=== PATIENT | male | born 1995 | race African-American/Black ===

== ENCOUNTER 2018-02-16 12:25 | Inpatient (IN) ==
[2018-02-16] MEDS ORDERED: Bisacodyl 10 MG Supp RECTAL PRN (18:17)
[2018-02-16] MEDS ORDERED: Aluminum/Magnesium/Simethacone Susp 30 ML UDC PO PRN (18:17)
[2018-02-17] MEDS: Senna/Docusate Sodium 8.6/50 MG Tablet PO SCH ×3 (00:47→23:34)
[2018-02-17 09:05] LABS: Anion Gap 8 meq/L (5-15); Blood Urea Nitrogen 8 mg/dL (7-18); Calcium 9.3 mg/dL (8.5-10.1); Carbon Dioxide 29.5 meq/L (21.0-32.0); Chloride 104 meq/L (98-107); Cholesterol 133 mg/dL (120-200); Glomerular Filtration Rate Greater Than 89 mL/min (>89); Glucose,Random 99 mg/dL (74-106); Potassium 3.7 meq/L (3.5-5.1); Sodium 141 meq/L (136-145); Triglycerides 95 mg/dL (42-150)
[2018-02-17 09:08] LABS: Chol/HDL Ratio 2.44 Ratio; HDL Cholesterol 54.3 mg/dL (40.0-60.0); LDL Cholesterol,Calculated 60 mg/dL (0-99)
--- NOTE | 2018-02-17 11:09 | P.HPPSY ---
Provisional Diagnosis Admission Date: February 16, 2018 14:57 [place] I.: 1. Adjustment disorder with mixed disturbance of emotions and conduct Rule out bipolar disorder, presently depressed or perhaps mixed Rule-out primary psychotic illness 2. History of bipolar disorder 3. Rule out higher functioning autism spectrum disorder [place] II.: Deferred Competence Certification of Person's Competence To Provide Express and Informed Consent I have personally examined aDrrel Gabriel, a person being served at [facility] on, February 17, 2018 1109. Express and informed consent means consent voluntarily given in writing, by a competent person, after sufficient explanation and disclosure of the subject matter involved to enable the person to make a knowing and willful decision without any element of force, fraud, deceit, duress, or other form of constraint or coercion. This person is 18 years of age or older, is not now known to be incompetent to consent to treatment with a guardian advocate, and does not have a health care surrogate or proxy currently making medical treatment decisions. I have found this person to be one of the following: [] Competent to provide express and informed consent, as defined above, for voluntary admission to this facility and is competent to provide express and informed consent for treatment. He/she has the consistent capacity to make well reasoned, willful, and knowing decisions concerning his or her medical or mental health treatment. The person fully and consistently understands the purpose of the admission for examination/placement and is fully capable of personally exercising all rights assured under [place] [] Incompetent to provide express and informed consent to voluntary admission, and this is incompetent to provide express and informed consent to treatment. The person must be transferred to involuntary status and a petition for a guardian advocate filed with the Circuit Court. [X] Refusing to provide express and informed consent to voluntary admission but is competent to provide express and informed consent for treatment. The person must be discharged or transferred to involuntary status. Form shall be completed within 24 hours of a person's arrival at the receiving facility and filed in the clinical record of each person: 1. Admitted on a voluntary basis 2. Permitted to provide express and informed consent to his/her own treatment 3. Allowed to transfer from involuntary to voluntary status 4. Prior to permitting a person to consent to his or her own treatment after having been previously found incompetent to consent to treatment. History of Present Illness Capacity: Has capacity (To consent for medication/treatment) Chief Complaint: [place] overdose History of Present Illness: Mr. Gabriel is a 22-year-old male with a reported history of bipolar disorder who presents in transfer from [facility] under a Nguyen act. Documentation from outside hospital reviewed. The patient presented there after a suicide attempt by lithium overdose. He was medically hospitalized for management of his overdose and transferred to [place] once medically cleared. Reviewing our electronic medical record, I see no previous psychiatric contact within our system. Of note, the patient's name is given as [facility] in outside hospital documentation. I have looked up this name as well in our EMR but have not found any matching records. Patient seen and examined with nurse. Chart reviewed. Case discussed with nursing staff. On my examination today, the patient presents as somewhat aloof and socially awkward. He says that he has a history of depression and chronic suicidality "but it is not curable, it just pops up." He says that his suicidal ideations "come and go" and medicines do not help. He is presently maintained on lithium 900 mg daily and BuSpar 20 mg twice daily by his report. He says that he made his presenting overdose on approximately 10 tablets of lithium 450 mg after an argument with his girlfriend. He says that he woke up and his girlfriend was not there "and I ended up doing it" referring to his overdose. He says that this overdose "was a bad idea." He denies suicidal or homicidal ideation at this time but also says "I just want to be free. I will do anything to be free." This suggests to me that he may be minimizing psychiatric symptomatology in service of obtaining a wren discharge. The patient admits to feeling somewhat depressed. No hypomanic or manic symptoms noted. He denies any audiovisual hallucinations. I can elicit no paranoia, no ideas of reference, no feelings of thought manipulation or other delusional material. The remainder of the psychiatric ROS is negative. No acute physical complaints. Past psychiatric history: The patient reports a history of bipolar disorder. Patient does report a history of possible hypomanic or perhaps manic episode 3 years ago when he was a student at [employer]. He follows with Dr. House at [facility] in [place] for outpatient psychiatric care. He reports that he was admitted approximately 1 year ago for an overdose. He says that he has a total of now 3 psychiatric admissions. He reports 1 previous suicide attempt by overdose. He does report a history of nonsuicidal cutting. Patient reports previous medication trials of Lamictal and Wellbutrin. Family history: The patient denies a family history of serious mental illness or suicide. Chemical dependency history: The patient denies any abuse of drugs or alcohol. Social history: The patient reports that he lives by himself in college housing. He is a sophomore with undecided major at [employer]. He has a girlfriend. He has no children but has a pet dog. He denies any history. Denies any access to guns or firearms. He does endorse some spiritual beliefs. He denies any history of trauma. Past medical history: Patient denies any history of medical problems. Medications: Patient takes psychotropics as listed above. He denies any other medications. Allergies: The patient denies any allergies. I did endeavor to reach out to Dr. House and have left a call back number requesting a call back. - Inpatient Certification I certify that the inpatient services were ordered in accordance with Medicare regulations governing the order. This includes certification that hospital inpatient services are reasonable and necessary and in the case of services not specified as inpatient-only under 42 CFR 419.22(n), that they are appropriately provided as inpatient services in accordance to with the 2-midnight benchmark under 43 CFR 412.3(e) I certify that inpatient psychiatric hospital services are medically necessary. Evaluation and treatment and/or diagnostic testing are expected to improve the patient's condition. The patient needs on a daily basis, active treatment furnished directly by or requiring the supervision of inpatient psychiatric facility personnel. Estimated Total Length of Stay (Days): 7 (5-7) Plans for Post Hospital Care: Not yet determined Review of Systems All other systems reviewed negative except as stated in [facility] - History History Provided By: Patient - Medical History Medical History: Medical History (Last Updated 02/16/18 @ 18:10 by Skye Cho RN) Bipolar disorder Suicidal ideation - Tobacco History Second Hand Smoke Exposure: No Tobacco Use In Past 30 Days: Yes Smoking Status: Current some day smoker Tobacco Type: Cigarettes - Alcohol History How Often Do You Have a Drink Containing Alcohol: 2 to 4 times a month - Substance Use History Substance History: No History of Abuse - Substance Use Type Marijuana Status: Active Route Used: Inhalation Frequency: "a couple of times a week" Last Used: 2 nights ago Reason for Use: Feels Good Comment: none - Travel History Recent Travel in the USA Within the Last 8 Weeks: No Recent Travel Out of the Country Within the Last 8 Weeks: No - Immunization History Tetanus Immunization: Unsure Hx Influenza Vaccine This Season: Yes Quality Measures - Psychiatric History Psychological trauma history: See above - Patient Strengths Patient's strengths (minimum of 2): In a monitored setting. Verbally fluent. Medications and Allergies Active Medications: Active Medications Al Hydrox/Mg Hydrox/Simethicone (Mag-Al Plus Susp Liq) 30 ml PO Q6H PRN PRN Reason: DYSPEPSIA Al Hydroxide/Mg Hydroxide (Milk Of Magnesia Liq) 30 ml PO Q12H PRN PRN Reason: Mild Constipation Bisacodyl (Dulcolax Supp) 10 mg RECTAL DAILY PRN PRN Reason: SEVERE CONSITIPATION Lactulose (Lactulose Liq) 30 ml PO DAILY PRN PRN Reason: SEVERE CONSITIPATION Senna/Docusate Sodium (Lorraine-Colace) 1 tab PO BID АННА Last Admin: 02/17/18 00:47 Dose: Not Given Sennosides (Senokot) 17.2 mg PO Q12H PRN PRN Reason: Moderate Constipation Allergies Allergy/AdvReac Type Severity Reaction Status Date / Time No Known Allergies Allergy Unverified 02/16/18 15:49 Home Medications Medication Instructions Recorded Confirmed Type buspirone See Label Instructions .ROUTE 02/16/18 History .COMPLEX lithium carbonate 2 tabcap PO HS 02/16/18 02/16/18 History Results - Labs CBC & Chem 7: 02/17/18 08:22 Labs: Laboratory Results - last 24 hr 02/17/18 08:22 Sodium 141 Potassium 3.7 Chloride 104 Carbon Dioxide 29.5 Anion Gap 8 BUN 8 Creatinine 0.94 Estimated GFR Greater than 89 Random Glucose 99 Calcium 9.3 Triglycerides 95 Cholesterol 133 LDL Cholesterol, Calc 60 HDL Cholesterol 54.3 Cholesterol/HDL Ratio 2.44 Laboratories from outside hospital reviewed. Presenting lithium level 2.7, downtrending. CBC reveals normal white blood cells, hemoglobin and platelets. CMP reveals hyperbilirubinemia at 3.7. Urine toxicology negative. EKG read as sinus rhythm but waveform not available for my review. Exam Vital signs: Vital Signs 02/16/18 17:46 02/17/18 06:41 Temperature 98.2 F 97.9 F Pulse Rate 53 L 63 Blood Pressure 108/54 L 122/55 L Pulse Oximetry 99 Intake & Output 02/16/18 02/17/18 02/17/18 18:59 06:59 18:59 Weight 63.2 kg Other: Weight On Admission 63.2 kg Narrative: Physical examination completed by hospitalist at outside hospital. On my examination today, the patient appears to be in no acute physical distress. No motor abnormalities noted. Labs and vital signs reviewed. Mental Status Examination Appearance: Appropriate Consciousness: Alert Orientation: x4 Motor Activity: Normal gait Speech: Unremarkable Language: Other (Somewhat stilted) Fund of Knowledge: Adequate Attention and Concentration: Adequate Memory: Unremarkable (Grossly intact on clinical exam) Mood: Other (Dysphoric) Affect: Other (Restricted. Socially awkward.) Thought Process & Associations: Circumstantial Thought Content: Appropriate Hallucination Type: None Delusion Type: None Suicidal Ideation: No (Suspect unreliable to contract for safety) Suicidal Plan: No Suicidal Intention: No Homicidal Ideation: No Homicidal Plan: No Homicidal Intention: No Insight: Fair Judgment: Impulsive Assessment and Plan - Assessment (1) Adjustment disorder with mixed disturbance of emotions and conduct Code(s): F43.25 - Adjustment disorder with mixed disturbance of emotions and conduct Status: Acute (2) History of bipolar disorder Code(s): Z86.59 - Personal history of other mental and behavioral disorders Status: Acute - Plan Plan: 22-year-old male with psychiatric history as detailed above who presents in transfer from outside hospital following a lithium overdose. Patient reports lithium overdose was made in the setting of conflict with girlfriend and also stress over school. He denies any suicidal ideation ongoing but also says that he would "do anything to be free" and so it is feared that he is minimizing psychiatric symptomatology. Differential diagnosis includes adjustment reaction to the stressors noted above, but we also must rule out mood episode in setting of bipolar disorder or primary psychotic illness. The patient is also somewhat interpersonally odd and socially awkward, and I do wonder about a higher functioning autism spectrum disorder. I will plan to admit the patient to the inpatient psychiatric unit for safety, observation and stabilization. Admit inpatient. Patient is declining to consent for voluntary admission. Involuntary status. I have completed first opinion. Consult for second opinion. Patient retains capacity to consent for psychotropic medications. Given his history of bipolar disorder and current depressed state, I have discussed with him pharmacotherapeutic options for management of his bipolar disorder. Given the therapeutic index of lithium and high lethality in overdose , I have suggested that we perhaps transitioning him to a different agent for mood stabilization. After a discussion of his options in this regard, we settle on a trial of lurasidone. I will initiate lurasidone 40 mg with dinner with plans to titrate to effect and check an EKG for QTc. I will continue the patient's BuSpar 20 mg twice daily. Atarax as needed for anxiety. Benadryl as needed for sleep. I will check a follow-up lithium level to ensure that this has normalized and is now undetectable. I will also check follow-up fractionated bilirubin to assess his hyperbilirubinemia at outside hospital. Vitals every shift. Counselor to see. Collateral information. Disposition planning. Estimated length of stay: 5-7 days. Justification for Continued Inpatient Stay: See above Discharge Planning: Pending psychiatric stabilization Request Healthcare Surrogate/Guardian Advocate?: No
[2018-02-17 13:45] LABS: Thyroid Stimulating Hormone 1.96 uIU/mL (0.358-3.740)
--- NOTE | 2018-02-17 14:32 | P.CONPSY ---
Provisional Diagnosis Admission Date: February 16, 2018 14:57 [place] I.: 1. Adjustment disorder with mixed disturbance of emotions and conduct Rule out bipolar disorder, presently depressed or perhaps mixed 2. History of bipolar disorder 3. Rule out higher functioning pervasive developmental disorder such as autism spectrum disorder [place] II.: Deferred History of Present Illness Service: Psychiaitry Primary Care Provider: UNKNOWN History of Present Illness: Mr. Gabriel is a 22-year-old male with a reported history of bipolar disorder who presents in transfer from [facility] under a Nguyen act. Documentation from outside hospital reviewed. The patient presented there after a suicide attempt by lithium overdose. He was medically hospitalized for management of his overdose and transferred to [place] once medically cleared. Reviewing our electronic medical record, I see no previous psychiatric contact within our system. Of note, the patient's name is given as [place] in outside hospital documentation. I have looked up this name as well in our EMR but have not found any matching records.Patient seen and examined with nurse. Chart reviewed. Case discussed with nursing staff. On my examination today, the patient presents as somewhat aloof and socially awkward. He says that he has a history of depression and chronic suicidality "but it is not curable, it just pops up." He says that his suicidal ideations "come and go" and medicines do not help. He is presently maintained on lithium 900 mg daily and BuSpar 20 mg twice daily by his report. He says that he made his presenting overdose on approximately 10 tablets of lithium 450 mg after an argument with his girlfriend. He says that he woke up and his girlfriend was not there "and I ended up doing it" referring to his overdose. He says that this overdose "was a bad idea." He denies suicidal or homicidal ideation at this time but also says "I just want to be free. I will do anything to be free." This suggests to me that he may be minimizing psychiatric symptomatology in service of obtaining a wren discharge. The patient admits to feeling somewhat depressed. No hypomanic or manic symptoms noted. He denies any audiovisual hallucinations. I can elicit no paranoia, no ideas of reference, no feelings of thought manipulation or other delusional material. The remainder of the psychiatric ROS is negative. No acute physical complaints. The patient is a 22-year-old AA man, domiciled in college in [place], single, with a reported history of bipolar disorder, multiple hospitalizations, who presents in transfer from [facility] under a Nguyen act. Documentation from outside hospital reviewed. The patient presented there after a suicide attempt by lithium overdose. He was medically hospitalized for management of his overdose and transferred to [place] once medically cleared. Consulted to me for second opinion. He initially was cooperative and brian, stating his OF was a mistake and he regrets his actions. However as interview progress patient becomes quite paranoid and agitated asking why I am asking question about him and who am I. He said he feels observed and not comfortable in the room and he ran out. [facility] - History History Provided By: Patient - Medical History Medical History: Medical History (Last Updated 02/16/18 @ 18:10 by Skye Cho RN) Bipolar disorder Suicidal ideation - Tobacco History Second Hand Smoke Exposure: No Tobacco Use In Past 30 Days: Yes Smoking Status: Current some day smoker Tobacco Type: Cigarettes - Alcohol History How Often Do You Have a Drink Containing Alcohol: 2 to 4 times a month - Substance Use History Substance History: No History of Abuse - Substance Use Type Marijuana Status: Active Route Used: Inhalation Frequency: "a couple of times a week" Last Used: 2 nights ago Reason for Use: Feels Good Comment: none - Travel History Recent Travel in the USA Within the Last 8 Weeks: No Recent Travel Out of the Country Within the Last 8 Weeks: No - Immunization History Tetanus Immunization: Unsure Hx Influenza Vaccine This Season: Yes Medications and Allergies Active Medications: Active Medications Al Hydrox/Mg Hydrox/Simethicone (Mag-Al Plus Susp Liq) 30 ml PO Q6H PRN PRN Reason: DYSPEPSIA Al Hydroxide/Mg Hydroxide (Milk Of Magnesia Liq) 30 ml PO Q12H PRN PRN Reason: Mild Constipation Bisacodyl (Dulcolax Supp) 10 mg RECTAL DAILY PRN PRN Reason: SEVERE CONSITIPATION Buspirone HCl (Buspar) 20 mg PO BID АННА Diphenhydramine HCl (Benadryl) 50 mg PO HS PRN PRN Reason: INSOMNIA Hydroxyzine HCl (Atarax) 50 mg PO Q6H PRN PRN Reason: ANXIETY Lactulose (Lactulose Liq) 30 ml PO DAILY PRN PRN Reason: SEVERE CONSITIPATION Lurasidone HCl (Latuda) 40 mg PO DAILY@17 АННА Senna/Docusate Sodium (Lorraine-Colace) 1 tab PO BID АННА Last Admin: 02/17/18 09:00 Dose: Not Given Sennosides (Senokot) 17.2 mg PO Q12H PRN PRN Reason: Moderate Constipation Allergies Allergy/AdvReac Type Severity Reaction Status Date / Time No Known Allergies Allergy Unverified 02/16/18 15:49 Home Medications Medication Instructions Recorded Confirmed Type buspirone See Label Instructions .ROUTE 02/16/18 History .COMPLEX lithium carbonate 2 tabcap PO HS 02/16/18 02/16/18 History Exam Vital signs: Vital Signs 02/16/18 17:46 02/17/18 06:41 Temperature 98.2 F 97.9 F Pulse Rate 53 L 63 Blood Pressure 108/54 L 122/55 L Pulse Oximetry 99 Intake & Output 02/16/18 02/17/18 02/17/18 18:59 06:59 18:59 Weight 63.2 kg Other: Weight On Admission 63.2 kg Mental Status Examination Appearance: Appropriate Consciousness: Alert Orientation: x4 Motor Activity: Normal gait Speech: Unremarkable Language: Other (Somewhat stilted) Fund of Knowledge: Adequate Attention and Concentration: Adequate Memory: Unremarkable (Grossly intact on clinical exam) Mood: Other (Dysphoric) Affect: Other (Restricted. Socially awkward.) Thought Process & Associations: Circumstantial Thought Content: Appropriate Hallucination Type: None Delusion Type: Paranoid Suicidal Ideation: No (Suspect unreliable to contract for safety) Suicidal Plan: No Suicidal Intention: No Homicidal Ideation: No Homicidal Plan: No Homicidal Intention: No Insight: Fair Judgment: Impulsive Assessment and Plan - Assessment (1) Adjustment disorder with mixed disturbance of emotions and conduct Code(s): F43.25 - Adjustment disorder with mixed disturbance of emotions and conduct Status: Acute (2) History of bipolar disorder Code(s): Z86.59 - Personal history of other mental and behavioral disorders Status: Acute - Plan Plan: I have seen and examined this patient, reviewed the documentation, I agree and concur with Dr. Oviedo assessment and plan. Justification for Continued Inpatient Stay: Continue admission Request Healthcare Surrogate/Guardian Advocate?: No
[2018-02-17 16:24] LABS: Hemoglobin A1c 4.5 % (4.3-6.0)
[2018-02-18] MEDS: Senna/Docusate Sodium 8.6/50 MG Tablet PO SCH ×2 (11:45→22:48)
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
[2018-02-19] MEDS: Senna/Docusate Sodium 8.6/50 MG Tablet PO SCH ×2 (11:18→22:04)
--- NOTE | 2018-02-19 12:11 | ECG ---
Date Performed: 02/17/2018 Time Performed: 14:05:30 PTAGE: 22 years EKG: SINUS BRADYCARDIA BORDERLINE ECG NO PREVIOUS TRACING DOCTOR: Erick Jaime Interpretating Date/Time 02/19/2018 12:09:52
--- NOTE | 2018-02-19 15:04 | P.PNPSY ---
Subjective Chief Complaint: [place] overdose Remarks: Reviewed electronic medical records and discussed case with staff. Follow-up was conducted in the hallway with PEYTON Amaya present. Patient voices no concerns. Denies racing thoughts, impulsivity or insomnia. States that he is feeling better. Sleeping and eating well. Very quiet. Spends time in the common area with others, stays to himself. Review of Systems All other systems reviewed negative except as stated in HPI Mental Status Examination Appearance: Appropriate Consciousness: Alert Orientation: x4 Motor Activity: Normal gait Speech: Unremarkable Language: Other (Somewhat stilted) Fund of Knowledge: Adequate Attention and Concentration: Adequate Memory: Unremarkable (Grossly intact on clinical exam) Mood: Other (Dysphoric) Affect: Other (Restricted. Socially awkward.) Thought Process & Associations: Circumstantial Thought Content: Appropriate Hallucination Type: None Delusion Type: None Suicidal Ideation: No (Suspect unreliable to contract for safety) Suicidal Plan: No Suicidal Intention: No Homicidal Ideation: No Homicidal Plan: No Homicidal Intention: No Insight: Fair Judgment: Impulsive Assessment and Plan - Assessment (1) Adjustment disorder with mixed disturbance of emotions and conduct Code(s): F43.25 - Adjustment disorder with mixed disturbance of emotions and conduct Status: Acute (2) History of bipolar disorder Code(s): Z86.59 - Personal history of other mental and behavioral disorders Status: Acute (3) [place] overdose Code(s): T56.891A - Toxic effect of other metals, accidental (unintentional), initial encounter Status: Acute - Plan Plan: Patient will be reevaluated Tuesday by the attending psychiatrist. Continue with current treatment plan. Justification for Continued Inpatient Stay: Moving patient to a less restrictive environment may result in his decompensation. Request Healthcare Surrogate/Guardian Advocate?: No
[2018-02-20] MEDS: Senna/Docusate Sodium 8.6/50 MG Tablet PO SCH ×2 (08:24→20:59)
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
[2018-02-21] MEDS: Senna/Docusate Sodium 8.6/50 MG Tablet PO SCH ×2 (08:04→20:27)
--- NOTE | 2018-02-21 10:44 | P.PNPSY ---
Subjective Chief Complaint: [place] overdose Remarks: Patient seen and examined with nurse and counselor. Chart reviewed. Case discussed with nursing. Patient noted to be argumentative, demanding. He reportedly displays inappropriate affect per nursing and also exhibits thought blocking. He was erroneously placed with 1:1 overnight secondary to a misreading of my order, and this 1:1 has been discontinued as there has been no overt aggressive behavior to support its continuation. Case discussed in treatment team. On my examination today, the patient presents as irritable. His is paranoid. He does claim to feel more relaxed with titration of Latuda, but his affect does not support this. He remains argumentative and passive aggressive. He denies suicidal or homicidal ideation, although it is not at all clear that he is reliable to contract for safety. He is somewhat intrusive. He seems to have a delusional misperception regarding his interaction with Dr. Ambriz. He refused to provide counselor with source of collateral information yesterday and initially refuses again today, saying he prefers to abide his time until [place] on . He does, ultimately, allow counselor to reach out to patient's stepmother Jaja Montez at [phone]. He reports that he finds this provider "annoying." I do try to explore and if possible repair the therapeutic relationship, but the patient just repeats that he finds me "annoying." I did offer to ask another physician to assume care of his case, but he declines and wishes to continue with me attending his case. He denies side effects from medications. No physical complaints. Vital Signs Temp Pulse Resp BP Pulse Ox 02/21/18 05:53 46 L 16 121/58 L 100 02/20/18 15:32 98.0 F 66 18 124/58 L 100 Intake and Output 02/20/18 02/21/18 02/21/18 22:59 06:59 14:59 Intake Total 360 / 360 Balance 360 / 360 Intake: Oral 360 / 360 Labs reviewed. Review of Systems All other systems reviewed negative except as stated in HPI (Limitation: Psychosis) Mental Status Examination Appearance: Appropriate Consciousness: Alert, Vigilant Orientation: x4 Motor Activity: Normal gait Speech: Unremarkable Language: Other (Remains a little stilted and odd) Fund of Knowledge: Adequate Attention and Concentration: Adequate Memory: Unremarkable (Grossly intact on clinical exam) Mood: Oppositional, Irritable (Remains quite irritable) Affect: Irritable Thought Process & Associations: Circumstantial Thought Content: Delusional Hallucination Type: None Delusion Type: Paranoid (Ongoing paranoia) Suicidal Ideation: No Suicidal Plan: No Suicidal Intention: No Homicidal Ideation: No Homicidal Plan: No Homicidal Intention: No Insight: Poor Judgment: Poor Assessment and Plan - Assessment (1) Unspecified psychosis Code(s): F29 - Unspecified psychosis not due to a substance or known physiological condition Status: Acute - Plan Plan: Continue to titrate Latuda to target paranoia. Latuda 80 mg with dinner this evening. Obtain collateral information, which hopefully will help clarify the diagnosis. Differential at this point includes primary psychotic illness, PDD, personality disorder (such as paranoid personality). Continue to monitor on the inpatient unit. Continue other medications and care as ordered. Justification for Continued Inpatient Stay: Medication changes. Impairment in reality construction. High risk for decompensation in less restrictive environment. Discharge Planning: Pending psychiatric stabilization. Request Healthcare Surrogate/Guardian Advocate?: No (1) Unspecified psychosis Qualifiers: Psychosis type: unspecified psychosis type Qualified Code(s): F29 - Unspecified psychosis not due to a substance or known physiological condition
--- NOTE | 2018-02-21 11:18 | P.TTN ---
- Patient Problems Problems: 1. Discharge planning 2. Medication compliance 3. Knowledge deficit 4. Lack of coping skills - Progress Toward Goals Provider Present: Dr. Yue Oviedo (Patient is tense and making threats of harming others on the unit yesterday, Dr. Oviedo has close opts on patient to ensure safety on the unit.) Psychiatric Counselors Present: Jack Tijerina Jr., [facility] (Patient stated he did not trust counselor to obtain collateral information and would rather "take my chances in court on " per patient.) Group Spec/RT/OT/GARCIA Present: RADHA Ballesteros (Patient does not attend groups at this time) - Documentation Teaching Recipient: Patient
[2018-02-21] MEDS: Lurasidone 80 MG Tablet PO SCH ×2 (17:04→17:56)
--- NOTE | 2018-02-22 10:31 | P.PNPSY ---
Subjective Chief Complaint: [place] overdose Remarks: Patient seen and examined with nurse. Chart reviewed. Case discussed with nursing staff. No behavioral issues noted overnight. Collateral information obtained by counselor from patient's parents reviewed. On my examination today , the patient apologizes for his behavior yesterday and in previous days. He denies any suicidal or homicidal ideation calm and at ease today. He does request transfer to a lower acuity unit. He complains of some pressure and anxiety feeling, most prominent at night after his Latuda dose, and it seems possible that this feeling is related to the medication. We discuss alternative antipsychotic options and settle on a trial of Zyprexa at bedtime. He overall seems improved today though and is agreeable to signing into the hospital voluntarily. No other medication side effects. No physical complaints. Patient's stepmother Jaja with whom he had verbal permission from the patient to speak was requesting a call from this provider. I did speak briefly with Jaja this morning and updated her that the patient would be signing voluntary as the parents had been planning to attend the [place]. She notes that she will be in this evening to visit with the patient, and I have encouraged her to relate her impressions of his progress back to the treatment team. I spent approximately 5 minutes in telephone consultation with patient's mother. Vital Signs Temp Pulse Resp BP Pulse Ox 02/22/18 06:32 97.7 F 65 16 117/70 100 Labs reviewed. No new labs. Review of Systems All other systems reviewed negative except as stated in HPI Mental Status Examination Appearance: Appropriate Consciousness: Alert, Vigilant Orientation: x4 Motor Activity: Normal gait, Other (No motor abnormalities noted) Speech: Unremarkable Language: Other (Remains a little stilted and odd) Fund of Knowledge: Adequate Attention and Concentration: Adequate Memory: Unremarkable (Grossly intact on clinical exam) Mood: Appropriate Affect: Appropriate Thought Process & Associations: Other (More linear today) Thought Content: Delusional Hallucination Type: None Delusion Type: Paranoid (Decreasing) Suicidal Ideation: No Suicidal Plan: No Suicidal Intention: No Homicidal Ideation: No Homicidal Plan: No Homicidal Intention: No Insight: Poor (Perhaps improving somewhat) Judgment: Poor Assessment and Plan - Assessment (1) Schizoaffective disorder, bipolar type Code(s): F25.0 - Schizoaffective disorder, bipolar type Status: Acute - Plan Plan: Given collateral information from patient's parents most likely diagnosis would seem to be schizoaffective disorder bipolar type, and I have adjusted the provisional diagnosis accordingly. Patient complains of feeling pressure and anxiety at bedtime after Latuda dose, and this may be a medication effect. We will change to Zyprexa. Since the patient is already on a robust dose of Latuda , I will switch to a similarly robust dose of Zyprexa, 15 mg at bedtime. R/B/A for medications discussed with patient. Patient may sign voluntary and we will try to get him to the 2600 unit today. Continue other medications and care as ordered. Justification for Continued Inpatient Stay: Medication changes. Resolving impairment in reality construction. Risk for decompensation in less restrictive environment. Discharge Planning: Pending psychiatric stabilization. I have discussed with patient that estimated overall length of stay is approximately 10-14 days at this point. He is agreeable to this. Request Healthcare Surrogate/Guardian Advocate?: No
[2018-02-22] MEDS ORDERED: OLANZapine 15 MG ODT Tablet PO SCH (21:00)
--- NOTE | 2018-02-23 13:32 | P.PNPSY ---
Subjective Chief Complaint: [place] overdose Remarks: Patient seen and examined with nurse. Chart reviewed. Case discussed with nursing staff. No behavioral issues noted overnight. On my examination today, the patient says that he feels improved with transition from Latuda to Zyprexa. He says that he had none of the anxiety/pressure feeling that he was experiencing when he was on the Latuda. He denies any SI, HI or AVH. He is calm and cooperative with examination. I have received message from the patient 's mother indicating that the patient seemed improved during their visitation yesterday evening. Denies side effects from medications. The patient would like to titrate the Zyprexa somewhat. No physical complaints. Vital Signs Temp Pulse Resp BP Pulse Ox 02/23/18 05:09 97.6 F 59 L 16 102/64 98 02/22/18 18:29 97.3 F L 65 18 116/64 98 Intake and Output 02/23/18 02/23/18 02/23/18 06:59 14:59 22:59 Other: Weight 62.5 kg Labs reviewed. No new labs. Review of Systems All other systems reviewed negative except as stated in HPI Mental Status Examination Appearance: Appropriate Consciousness: Alert, Vigilant Orientation: x4 Motor Activity: Normal gait, Other (Very mild hand tremor (patient reports this is chronic), no cogwheeling, no dystonias, no dyskinesias.) Speech: Unremarkable Language: Adequate Fund of Knowledge: Adequate Attention and Concentration: Adequate Memory: Unremarkable (Grossly intact on clinical exam) Mood: Appropriate Affect: Appropriate Thought Process & Associations: Intact Thought Content: Appropriate Hallucination Type: None Delusion Type: None Suicidal Ideation: No Suicidal Plan: No Suicidal Intention: No Homicidal Ideation: No Homicidal Plan: No Homicidal Intention: No Insight: Fair Mental Status Exam Remarks: Judgment is fair Assessment and Plan - Assessment (1) Schizoaffective disorder, bipolar type Code(s): F25.0 - Schizoaffective disorder, bipolar type Status: Acute - Plan Plan: Titrate Zyprexa to 20 mg at bedtime per patient preference. Continue BuSpar as ordered. Continue to monitor on the inpatient unit. Continue other medications and care as ordered. Justification for Continued Inpatient Stay: Medication changes. Risk for decompensation in less restrictive environment. Discharge Planning: Pending psychiatric stabilization. Possible discharge tomorrow or after weekend. Request Healthcare Surrogate/Guardian Advocate?: No
[2018-02-23 19:22] VITALS: O2SAT 95
[2018-02-23] MEDS ORDERED: OLANZapine 20 MG Tab.Rapdis PO SCH (21:00)
[2018-02-24 06:06] VITALS: BP 127/56; PULSE 51; RESP 16; TEMP 97.4
--- NOTE | 2018-02-24 12:16 | P.DSPSY ---
Psychiatry Discharge Summary Inpatient Psychiatric care?: Yes Advance Directives: No Mental Health Advance Directive: No Health Care Proxy: No - Admission Admission Date: February 16, 2018 14:57 - Admission Diagnosis (1) Schizoaffective disorder, bipolar type Code(s): F25.0 - Schizoaffective disorder, bipolar type Brief History: Mr. Gabriel is a 22-year-old male with a reported history of bipolar disorder who presents in transfer from [facility] under a [place] act. Documentation from outside hospital reviewed. The patient presented there after a suicide attempt by lithium overdose. He was medically hospitalized for management of his overdose and transferred to [facility] once medically cleared. Reviewing our electronic medical record, I see no previous psychiatric contact within our system. Of note, the patient's name is given as [facility] in outside hospital documentation. I have looked up this name as well in our EMR but have not found any matching records. Patient seen and examined with nurse. Chart reviewed. Case discussed with nursing staff. On my examination today, the patient presents as somewhat aloof and socially awkward. He says that he has a history of depression and chronic suicidality "but it is not curable, it just pops up." He says that his suicidal ideations "come and go" and medicines do not help. He is presently maintained on lithium 900 mg daily and BuSpar 20 mg twice daily by his report. He says that he made his presenting overdose on approximately 10 tablets of lithium 450 mg after an argument with his girlfriend. He says that he woke up and his girlfriend was not there "and I ended up doing it" referring to his overdose. He says that this overdose "was a bad idea." He denies suicidal or homicidal ideation at this time but also says "I just want to be free. I will do anything to be free." This suggests to me that he may be minimizing psychiatric symptomatology in service of obtaining a wren discharge. The patient admits to feeling somewhat depressed. No hypomanic or manic symptoms noted. He denies any audiovisual hallucinations. I can elicit no paranoia, no ideas of reference, no feelings of thought manipulation or other delusional material. The remainder of the psychiatric ROS is negative. No acute physical complaints. Past psychiatric history: The patient reports a history of bipolar disorder. Patient does report a history of possible hypomanic or perhaps manic episode 3 years ago when he was a student at [employer]. He follows with Dr. House at [facility] in [place] for outpatient psychiatric care. He reports that he was admitted approximately 1 year ago for an overdose. He says that he has a total of now 3 psychiatric admissions. He reports 1 previous suicide attempt by overdose. He does report a history of nonsuicidal cutting. Patient reports previous medication trials of Lamictal and Wellbutrin. Family history: The patient denies a family history of serious mental illness or suicide. Chemical dependency history: The patient denies any abuse of drugs or alcohol. Social history: The patient reports that he lives by himself in college housing. He is a sophomore with undecided major at [employer]. He has a girlfriend. He has no children but has a pet dog. He denies any history. Denies any access to guns or firearms. He does endorse some spiritual beliefs. He denies any history of trauma. Past medical history: Patient denies any history of medical problems. Medications: Patient takes psychotropics as listed above. He denies any other medications. Allergies: The patient denies any allergies. I did endeavor to reach out to Dr. House and have left a call back number requesting a call back. Tobacco Use In Past 30 Days: Yes How Often Do You Have a Drink Containing Alcohol: 2 to 4 times a month Hospital Course: She was admitted to a locked psychiatric unit for further evaluation and treatment. All safety precautions were maintained. The patient was followed by a psychiatric provider as well as a counselor and vocational case manager. During his stay he was transitioned from Latuda to Zyprexa. Seems to have stabilized on this medication and reports that he is feeling much improved. Upon examination today, the patient is found alert and oriented, stating that he feels much better, and requesting discharge. He reports that his been sleeping and eating well. He is exhibiting no signs of psychosis nor constance at this time. There is no indication of internal stimulation or thought blocking. He denies being suicidal, homicidal, experiencing auditory or visual hallucinations. Counselor has established treatment plan for follow-up. This time I do not find him to be a danger to himself or others. It would appear he has reached maximum therapeutic benefit from this inpatient admission. He will be discharged to home and advised to follow-up as indicated. He was advised to return should his condition worsen. - Discharge Discharge Date: 02/24/18 - Discharge Diagnosis (1) Schizoaffective disorder, bipolar type Code(s): F25.0 - Schizoaffective disorder, bipolar type Status: Acute Discharge Disposition: Home - Discharge Instructions Discharge Diet: Regular Diet Activities You Can Perform: Regular- No Restrictions - Discharge Time > 30 minutes Mental Status Examination Appearance: Appropriate Consciousness: Alert, Vigilant Orientation: x4 Motor Activity: Normal gait, Other (Very mild hand tremor (patient reports this is chronic), no cogwheeling, no dystonias, no dyskinesias.) Speech: Unremarkable Language: Adequate Fund of Knowledge: Adequate Attention and Concentration: Adequate Memory: Unremarkable (Grossly intact on clinical exam) Mood: Appropriate Affect: Appropriate Thought Process & Associations: Intact Thought Content: Appropriate Hallucination Type: None Delusion Type: None Suicidal Ideation: No Suicidal Plan: No Suicidal Intention: No Homicidal Ideation: No Homicidal Plan: No Homicidal Intention: No Insight: Fair Judgment: Poor Discharge/Advance Care Plan - Results Vital Signs: Last Vital Signs Temp 97.4 F L 02/24/18 06:04 Pulse 51 L 02/24/18 06:04 Resp 16 02/24/18 06:04 BP 127/56 L 02/24/18 06:04 Pulse Ox 95 02/24/18 06:04 Lab Results: Laboratory Results Hemoglobin A1c 4.5 % (4.3-6.0) 02/17/18 08:22 Triglycerides 95 mg/dL (42-150) 02/17/18 08:22 Cholesterol 133 mg/dL (120-200) 02/17/18 08:22 LDL Cholesterol, Calc 60 mg/dL (0-99) 02/17/18 08:22 HDL Cholesterol 54.3 mg/dL (40.0-60.0) 02/17/18 08:22 TSH 1.960 uIU/mL (0.358-3.740) 02/17/18 08:22 [place] 0.2 meq/L (0.5-1.5) L 02/18/18 06:26 Summary of Procedures: None Pending Results: None - Medications Number of antipsychotic medications at discharge: 1 - Discharge Care Plan Goals to Promote Your Health: * To prevent worsening of your condition and complications * To maintain your health at the optimal level Directions to Meet Your Goals: Take your medications as prescribed Follow your dietary instruction Follow activity as directed Keep your appointments as scheduled Take your immunizations and boosters as scheduled If your symptoms worsen call your PCP, if no PCP go to Urgent Care Center or Emergency Room For 03/01 questions related to your inpatient stay or results of tests pending at discharge, please contact AYDEN Murry at Smoking is Dangerous to Your Health. Avoid second hand smoking
== END 2018-02-24 18:03 | disposition home or self-care (01) ==
LOC: H270 14:57 → H260 02-22 10:30
PROVIDERS: ADMIT Psychiatry & Neurology Psychiatry; ATTEND Psychiatry & Neurology Psychiatry